=== PATIENT | male | born 1990 | race African-American/Black ===

== ENCOUNTER 2016-08-15 19:30 | Emergency (ER) | payer BC ==
[~2016-08-15] VITALS: Ht 185.4 cm; Wt 72.6 kg
[2016-08-15 19:35] VITALS: BP 108/54
[2016-08-15] MEDS ORDERED: HYDROcodone/APAP 5/325MG 1 TAB TABLET PO ONE (20:30)
[2016-08-15] MEDS ORDERED: HYDR-971 PO (20:31)
--- NOTE | 2016-08-15 20:32 | PHYS DOC ---
Past Medical History Past Medical History: No Pertinent History Past Surgical History: Appendectomy, Other Additional Past Surgical Histo: R ACHILLES SX Alcohol Use: Occasionally Drug Use: Marijuana Adult General Chief Complaint Chief Complaint: ANKLE PROBLEM HPI HPI Patient is a 26 year old male who presents with a possible left Achilles tendon rupture. Patient states he was playing basketball and came down wrong on the ankle, he states he heard a snap sound from the Achilles tendon. Review of Systems Review of Systems Constitutional: Denies fever or chills [] Musculoskeletal: Possible Achilles tendon rupture. Integument: Denies rash or skin lesions [] Neurologic: Denies headache, focal weakness or sensory changes [] Endocrine: Denies polyuria or polydipsia [] Current Medications Current Medications Current Medications Medications (Trade) Dose Ordered Sig/Sydni Start Time Stop Time Status Last Admin Dose Admin Acetaminophen/ Hydrocodone Bitart (Lortab 5/325) 2 tab 1X ONCE 08/15/16 20:30 08/15/16 20:31 DC Allergies Allergies Allergies Coded Allergies Type Severity Reaction Last Updated Verified No Known Drug Allergies 08/15/16 No Physical Exam Physical Exam Constitutional: Well developed, well nourished, no acute distress, non-toxic appearance. [] Back: No tenderness, no CVA tenderness. [] Extremities: Left ankle with mild soft tissue swelling along the Achilles tendon. Tenderness on palpation of the left Achilles tendon. Positive douglas test. +2 left pedal pulse. Cap refill less than 2 seconds the left lower extremity sensation intact to the left lower extremity. Neurologic: Alert and oriented X 3, normal motor function, normal sensory function, no focal deficits noted. [] Psychologic: Affect normal, judgement normal, mood normal. [] Current Patient Data Vital Signs Vital Signs Date Time Temp Pulse Resp B/P (MAP) Pulse Ox O2 Delivery O2 Flow Rate FiO2 08/15/16 19:35 99.2 95 16 96 Room Air 99.2 EKG EKG [] Radiology/Procedures Radiology/Procedures [] Course & Med Decision Making Course & Med Decision Making Pertinent Labs and Imaging studies reviewed. (See chart for details) Patient is in the ED with possible left Achilles tendon. He has a positive Douglas test. Left ankle x-rays interpreted by Dr. Ross is negative for any acute findings. He was placed in a posterior leg splint by the microelectronics technician, neurovascular exam done by me is normal, cap refill less than 2 seconds. Ice elevation encouraged. Discharged with pain medicine and crutches. Follow-up with orthopedic doctor by calling the office on Monday for appointment. Ezra Disclaimer Ezra Disclaimer This electronic medical record was generated, in whole or in part, using a voice recognition dictation system. Departure Departure Impression: Primary Impression: Left ankle pain Disposition: HOME, SELF-CARE Condition: STABLE Referrals: NO PCP (PCP) CHRISTIAN RICE II, MD call the office on Monday and set up a follow up appointment Patient Instructions: Ankle Pain Additional Instructions: You were seen for possible Achilles tendon rupture. Ice and elevate the extremity. Call the orthopedic doctor provided on Monday and set up a follow- up appointment. Scripts Hydrocodone/Apap 5-325 (NORCO 5-325 TABLET) 1 Each Tablet 1-2 TAB PO Q4-6HRS, #20 TAB Prov: ALBERTO ANDREW APRN 08/15/16 Problem Qualifiers Primary Impression: Left ankle pain Chronicity: acute Qualified Codes: M25.572 - Pain in left ankle and joints of left foot ALBERTO ANDREW APRN Aug 15, 2016 20:32
--- NOTE | 2016-08-16 09:18 | RAD ---
Indication injury, pain. AP oblique and lateral views of the left ankle were obtained. No bony abnormality is seen
== END 2016-08-15 20:37 | disposition home or self-care (01) ==
LOC: ER 19:30
DX: M25.572 Pain in left ankle and joints of left foot (principal); F12.10 Cannabis abuse, uncomplicated; Z98.890 Other specified postprocedural states; X58.XXXA Exposure to other specified factors, initial encounter; Y93.67 Activity, basketball; Y99.8 Other external cause status; Y92.89 Other specified places as the place of occurrence of the external cause
CPT/HCPCS: 29515; 73610; 99284-25

== ENCOUNTER 2016-08-31 08:52 | Day surgery (SDC) | payer BC ==
[~2016-08-31] VITALS: Ht 185.4 cm; Wt 72.6 kg
[~2016-08-31 08:52] MED LIST: HYDR-971 PO
[2016-08-31] MEDS ORDERED: ONDANSETRON PF 4 MG/2 ML VIAL. ONE (09:10)
[2016-08-31] MEDS ORDERED: MIDAZOLAM HCL/PF 2 MG/2 ML VIAL. ONE (09:10)
[2016-08-31] MEDS ORDERED: fentaNYL PF VIAL 100 MCG/2 ML VIAL ONE ×4 (09:10→12:22)
[2016-08-31] MEDS ORDERED: PROPOFOL 20 ML IV ONE (09:10)
[2016-08-31] MEDS ORDERED: LIDOCAINE 2% PF Vial for OR 5 ML VIAL. ONE (09:10)
[2016-08-31] MEDS ORDERED: DEXAMETHASONE SOD PHOS 20 MG/5 ML VIAL. ONE (09:10)
[2016-08-31] MEDS ORDERED: IV RINGERS,LACTATED 1000ML 1,000 ML IV SCH ×2 (09:30→10:09)
[2016-08-31] MEDS ORDERED: ROCURONIUM 50 MG/5 ML VIAL. ONE (09:59)
[2016-08-31] MEDS ORDERED: BUPIVACAINE MPF 0.5% 30 ML VIAL. ONE (10:09)
[2016-08-31] MEDS ORDERED: LIDOCAINE 1% PF 30 ML VIAL. ONE (10:09)
[2016-08-31] MEDS ORDERED: MORPHINE SULFATE 2 MG/ML DISP.SYRIN. IV PRN (10:15)
[2016-08-31] MEDS ORDERED: PROCHLORPERAZINE 10 MG/2 ML VIAL. IV PRN (10:15)
[2016-08-31] MEDS ORDERED: fentaNYL PF VIAL 100 MCG/2 ML VIAL IV PRN (10:15)
[2016-08-31] MEDS ORDERED: HYDROmorphone 2 MG/ML VIAL IV PRN (10:15)
[2016-08-31] MEDS ORDERED: ONDANSETRON PF 4 MG/2 ML VIAL. IV PRN (10:15)
[2016-08-31] MEDS ORDERED: LIDOCAINE 1% 1 ML SYRINGE. ID PRN (10:15)
--- NOTE | 2016-08-31 10:20 | PDOC4 ---
Operative Note Operative Note Date of surgery: 08/31/2016 Surgeon: Pawan Rice MD next Waist Cutter: Odette Boswell Preoperative diagnosis: Left Achilles rupture Postoperative diagnosis: Same Procedure performed: Left Achilles tendon repair with ultra braid suture Tourniquet time: See OR record Blood loss: 10 mL's Complications: None Reason for procedure: Patient is a very pleasant 26-year-old who had a right Achilles tear quite some time ago and subsequently returned to playing basketball and tore his left Achilles. For details please see my outpatient notes. Clinical and radiographic evidence were reviewed by myself. We had a discussion of the risks, benefits, and alternatives to surgical versus nonsurgical treatment and he elected to proceed. Next Description of procedure patient was greeted in the preoperative area by myself for the correct extremity was verified. He was taken back to the operative suite and his antibiotics were started and row. Once in the OR, he was transferred gently prone after successful induction of a general anesthetic. All the pressure points are padded. We then placed a nonsterile tourniquet to his left thigh. The left hindfoot and ankle were clipped. We then proceeded to prep and drape left lower extremity in our usual sterile fashion and conducted our standard preoperative timeout. After this, I maritza a line for my plan skin incision then incised skin with a scalpel and dissected subcutaneous tissue with Metzenbaum scissors and used electrocautery for hemostasis. I placed self- retaining retractors and open the peritenon in line with the skin incision and then gently debrided the ends of the tendon and remove the hematoma. I irrigated this area out. I then placed a #2 ultra braid in a locked running whipstitch fashion up and down the proximal and distal ends of the tendon and then tied these securely together. I then used #1 Vicryl to help reinforce this and consolidate the loose fibers. The area was then irrigated out and I used the #1 Vicryl to close the peritenon. Fascia was then closed with simple interrupted #1 Vicryl. Inverted interrupted 2-0 Vicryl was used for subcutaneous tissue and 2-0 nylon in a mattress fashion was used for skin. The area was cleansed and dried and a sterile dressing was applied. We then placed him into an AO splint that was well-padded. At the conclusion of the surgery was awakened from anesthesia and transferred gently supine to the recovery room cart and taken to the PACU in stable and expected condition. Postop plan is to discharge him home, nonweightbearing. We'll see him back in 2 weeks, sooner should a problem arise PAWAN RICE II, MD Aug 31, 2016 10:20
--- NOTE | 2016-08-31 10:21 | DISCH ---
DISCHARGE INSTRUCTIONS Condition on Discharge Condition on Discharge: Stable Activity After Discharge Activity Instructions for Disc: Other, see below Bathing Instructions: Shower-keep dressing dry Weight Bearing Status after Di: Non weight bearing Diet after Discharge Diet after Discharge: Regular Wound Incision Care Wound/Incision Care: Ice to area for comfort, Keep wound/cast CDI, Keep wound elevated, Do not change dressing Contacting the DRJohanna after DC Call your doctor for: Concerns you may have Follow-Up Follow up with: [facility] in 2wks CHRISTIAN RICE II, MD Aug 31, 2016 10:21
[2016-08-31] MEDS ORDERED: GLYCOPYRROLATE 1 MG/5 ML VIAL. ONE (10:56)
[2016-08-31] MEDS ORDERED: NEOSTIGMINE METHYLSULFATE 5 MG/5 ML SYRINGE. ONE (10:56)
[2016-08-31] MEDS ORDERED: SEVOFLURANE 61 TO 120 MINUTES. IH ONE (11:21)
[2016-08-31] MEDS: fentaNYL PF VIAL 100 MCG/2 ML VIAL IV PRN ×4 (11:50→12:47)
[2016-08-31 12:45] VITALS: BP 116/67
== END 2016-08-31 13:15 | disposition home or self-care (01) ==
LOC: SURG 08:52
PROVIDERS: ATTEND Orthopaedic Surgery Sports Medicine
DX: S86.012A Strain of left Achilles tendon, initial encounter (principal); X58.XXXA Exposure to other specified factors, initial encounter; Y93.89 Activity, other specified; Y92.89 Other specified places as the place of occurrence of the external cause; Y99.9 Unspecified external cause status; Z87.39 Personal history of other diseases of the musculoskeletal system and connective tissue
CPT/HCPCS: 27650; J0690; J1100; J2001; J2250; J2405; J2704; J2710; J3010; J3490